=== PATIENT | male | born 2005 | race Caucasian/White ===

== ENCOUNTER 2024-12-22 04:41 | Emergency (ER) | payer OTHER, SELFPAY ==
[2024-12-22 04:49] VITALS: BP 123/74; PULSE 63; RESP 14; TEMP 36.9; O2SAT 98
[2024-12-22 04:56] LABS: Alanine Aminotransferase 20 U/L (6-50); Albumin Level 3.8 g/dL (3.5-5.1); Alkaline Phosphatase 74 U/L (38-126); Anion Gap 12 mmol/L (4-12); Aspartate Amino Transferase 22 U/L (17-59); Bilirubin,Total 0.4 mg/dL (0.2-1.3); Blood Urea Nitrogen 9 mg/dL (9-20); Carbon Dioxide 23 mmol/L (22-30); Chloride 107 mmol/L (98-107); Estimated Glomerular Filt Rate > 60; Glucose 132 mg/dL (65-110); Lipase 51 U/L (23-300); Potassium 3.1 mmol/L (3.4-5.0); Sodium 142 mmol/L (137-145)
[2024-12-22 04:57] LABS: Ethanol 262 mg/dL (<10)
[2024-12-22 05:00] LABS: Basophils Absolute Auto 0.1 K/mm3 (0.0-0.1); Basophils Percent Auto 1.1 % (0.2-1.2); Eosinophils Absolute Auto 0.1 K/mm3 (0-0.3); Eosinophils Percent Auto 1.2 % (0-4.4); Hematocrit 39.3 % (42.0-52.0); Hemoglobin 13.6 g/dL (14.0-18.0); Immature Granulocyte Absolute 0.01 K/mm3 (0.00-0.031); Immature Granulocyte Percent A 0.1 % (0-0.5); Lymphocytes Absolute Auto 2.76 K/mm3 (0.9-3.2); Mean Corpuscular HGB Conc 34.6 g/dl (32-36); Mean Corpuscular Hemoglobin 29.1 pg (26-34); Mean Corpuscular Volume 84.2 fl (80-100); Monocytes Absolute Auto 0.8 K/mm3 (0.1-0.6); Monocytes Percent Auto 9.4 % (2.6-8.5); Neutrophils Absolute Auto 4.4 K/mm3 (1.3-6.7); Neutrophils Percent Auto 54.2 % (45.5-73.1); Platelet Count Result 196 k/mm3 (150-375); Red Blood Count 4.67 M/mm3 (4.6-6.20); Red Cell Distribution Width 12.8 % (11.5-14.5); White Blood Count 8.1 K/mm3 (4.5-10.0)
[2024-12-22] MEDS: SODIUM CHLORIDE 0.9% IV 1,000 ML 999 ML IVPB (05:06)
[2024-12-22] MEDS: ONDANSETRON INJ 4 MG/2 ML VIAL IV PUSH (05:06)
--- NOTE | 2024-12-22 05:41 | ED_ITS ---
HPI - Alcohol General Chief Complaint: Alcohol Stated Complaint: unk Time Seen by Provider: 12/22/24 04:45 History of Present Illness HPI narrative: Patient is a 19-year-old male who presents to the emergency department this evening due to concern for altered mental status. Upon EMS arrival, patient was difficult to arouse and after final getting him to a talk patient did admit to drinking a lot of Tequila, moving all 4 extremities spontaneously. Per EMS, patient did have 4 episodes of vomiting on route to the emergency department. No vomiting episodes in the ED. patient is alert oriented to person and place, he is clearly intoxicated. is present at bedside with the patient and states that she did call EMS as she can get him to wake up. She admits that patient rarely drinks. Remainder of the history of present illness and review of systems limited secondary to patient's current intoxicated status. Related Data Allergies Allergy/AdvReac Type Severity Reaction Status Date / Time No Known Allergies Allergy Verified 12/22/24 05:05 Review of Systems 2 Review of Systems: Unable to obtain full review of systems secondary to patient's intoxicated status. Exam 2 Narrative: General: Very intoxicated, afebrile, in no acute distress. HEENT: PERRL, no rhinorrhea, no post nasal drip, oropharynx clear. Neck: Trachea midline, no JVD, no lymphadenopathy. Cardiovascular: Regular rate and rhythm, no murmurs, rubs or gallops, no peripheral edema. Respiratory: Clear to auscultation bilaterally, no tachypnea, no wheezing, no rhonchi, no rubs, no respiratory distress. Abdomen: Soft, nontender, nondistended, no rebound, no guarding, no peritoneal signs. Musculoskeletal: No joint swelling or deformity, normal muscle tone. Skin: No rashes or petechia, no signs of infection. Psychiatric: Intoxicated, otherwise normal behavior and judgment for situation. Neurological: Alert and oriented to person, place, intoxicated Follows some commands. No focal deficits, moving all extremities spontaneously, speech is clear and fluent. Course Vital Signs Vital signs: Vital Signs Temperature 98.4 F 12/22/24 04:49 Pulse Rate 63 12/22/24 04:49 Respiratory Rate 14 12/22/24 04:49 Blood Pressure 123/74 12/22/24 04:49 Pulse Oximetry 98 12/22/24 04:49 Oxygen Delivery Room Air 12/22/24 04:49 Temperature 98.4 F 12/22/24 04:49 Pulse Rate 63 12/22/24 04:49 Respiratory Rate 14 12/22/24 04:49 Blood Pressure 123/74 12/22/24 04:49 Pulse Oximetry 98 12/22/24 04:49 Oxygen Delivery Room Air 12/22/24 04:49 MDM - Alcohol MDM Narrative Medical decision making narrative: The patient was evaluated by myself in the emergency department. History is obtained from EMS and , physical exam was performed. External medical records were reviewed at this time. IV was established and pertinent tests were ordered. Patient was administered 2 L IV fluid bolus with normal saline and 4 mg of IV Zofran. Laboratory results obtained revealing an alcohol level of 262, and a potassium of 3.1 otherwise unremarkable. At this time patient was administered 20 mEq of IV potassium. Differential diagnosis considerations include alcohol intoxication, dehydration, electrolyte derangements. Comorbidities impacting this visit include none. I have evaluated and discussed social determinants of health with the patient that could potentially impact subsequent diagnosis and treatment plans. Patient was observed in our emergency department until reaching clinical sobriety and was discharged to care of his . On repeat assessment of the patient, reevaluation revealed that the patient is doing well and is in no acute distress. Patient symptoms have improved since he arrived to our emergency department. Repeat vital signs were all reviewed and noted to be stable. Differential diagnosis and treatment plan were discussed with the patient at bedside. Patient agrees with discussion and after shared medical decision making agrees with discharge. All questions were answered to the patient's satisfaction. Patient will follow up with his PCP in 3-5 days. Patient was provided with strict return precautions and instructed to return to the emergency department if any new or worsening symptoms develop. The patient was discharged in stable condition. Lab Data 12/22/24 04:20 12/22/24 04:20 Labs: Lab Results 12/22/24 Range/Units 04:20 WBC 8.1 (4.5-10.0) K/mm3 RBC 4.67 (4.6-6.20) M/mm3 Hgb 13.6 L (14.0-18.0) g/dL Hct 39.3 L (42.0-52.0) % MCV 84.2 (80-100) fl MCH 29.1 (26-34) pg MCHC 34.6 (32-36) g/dl RDW 12.8 (11.5-14.5) % Plt Count 196 (150-375) k/mm3 MPV 10.0 (7.4-10.4) fl Immature Gran % (Auto) 0.1 (0-0.5) % Neut % (Auto) 54.2 (45.5-73.1) % Lymph % (Auto) 34.0 (18.3-44.2) % [place] % (Auto) 9.4 H (2.6-8.5) % Eos % (Auto) 1.2 (0-4.4) % Baso % (Auto) 1.1 (0.2-1.2) % Lymph # (Auto) 2.76 (0.9-3.2) K/mm3 [place] # (Auto) 0.8 H (0.1-0.6) K/mm3 Eos # (Auto) 0.1 (0-0.3) K/mm3 Baso # (Auto) 0.1 (0.0-0.1) K/mm3 Abs Immat Gran (auto) 0.01 (0.00-0.031) K/mm3 Absolute Neuts (auto) 4.4 (1.3-6.7) K/mm3 Absolute Nucleated RBC 0.000 (0.0-0.012) K/mm3 Nucleated RBC % 0.0 (0.0-0.2) % Sodium 142 (137-145) mmol/L Potassium 3.1 L (3.4-5.0) mmol/L Chloride 107 (98-107) mmol/L Carbon Dioxide 23 (22-30) mmol/L Anion Gap 12 (4-12) mmol/L BUN 9 (9-20) mg/dL Creatinine 0.72 (0.7-1.3) mg/dL Estim Creat Clear Calc Not Reportable Estimated GFR > 60 (59 - ) Glucose 132 H (65-110) mg/dL Calcium 8.0 L (8.4-10.2) mg/dL Total Bilirubin 0.4 (0.2-1.3) mg/dL AST 22 (17-59) U/L ALT 20 (6-50) U/L Alkaline Phosphatase 74 (38-126) U/L Total Protein 6.0 L (6.3-8.2) g/dL Albumin 3.8 (3.5-5.1) g/dL Lipase 51 (23-300) U/L Ethyl Alcohol 262 (<10) mg/dL Discharge Plan Discharge Clinical Impression: Alcoholic intoxication, Acute hypokalemia Patient Disposition: Home, Self-Care Condition: Improved Instructions: Antibiotic Form, Abuse of Alcohol (ED), Acute Nausea and Vomiting (ED) Additional Instructions: Please follow-up with your family doctor within the next 3-5 days could return to the ED if any new or worsening symptoms develop. Patient Language: French Follow-up/Referrals: Maximino Funk MD [Physician] - 3 Days UNKNOWN,DOCTOR [Primary Care Provider] -
[2024-12-22] MEDS: SODIUM CHLORIDE 0.9% IV 1,000 ML 999 ML IV CONT (05:42)
[2024-12-22 05:44] VITALS: BP 134/81; PULSE 61; RESP 16; O2SAT 99
[2024-12-22] MEDS: KCL 20 MEQ/SW 100 ML 100 ML 50 MEQ IVPB (06:14)
[2024-12-22 07:00] VITALS: BP 106/58; PULSE 74; RESP 16; TEMP 36.4; O2SAT 100
[2024-12-22 08:00] VITALS: BP 107/54; PULSE 68; RESP 16; TEMP 36.6; O2SAT 100
[2024-12-22 08:57] VITALS: BP 112/58; PULSE 72; RESP 16; TEMP 36.6; O2SAT 98
== END 2024-12-22 10:06 | disposition home or self-care (01) ==
LOC: ANHED 05:56
PROVIDERS: Emergency Provider Emergency Medicine
DX: F10.129 Alcohol abuse with intoxication, unspecified (principal); Y90.8 Blood alcohol level of 240 mg/100 ml or more; E87.6 Hypokalemia
CPT/HCPCS: 36415; 80053; 82077; 83690; 85025; 96361; 96365; 96366; 96375; 99284; J2405; J3480; J7030